=== PATIENT | male | born 1990 | race Caucasian/White ===

== ENCOUNTER 2022-02-08 17:29 | Emergency (ER) | payer MEDICARE, OTHER ==
[~2022-02-08 17:29] MED LIST: AMPHETAMINE; CEPHALEXIN250 MG/5 M PO; CLONIDINE HCL0.1 M1 PO; DEXTROAM; MOTRIN100 MG/5 M PO
== END 2022-02-08 19:40 | disposition other institution (70) ==
LOC: FER 17:29
DX: S68.627A Partial traumatic transphalangeal amputation of left little finger, initial encounter (principal); W23.0XXA Caught, crushed, jammed, or pinched between moving objects, initial encounter; Y92.511 Restaurant or cafe as the place of occurrence of the external cause
CPT/HCPCS: 73140